=== PATIENT | female | born 1980 | race Caucasian/White ===

== ENCOUNTER 2018-09-22 10:07 | Emergency (ER) | payer MEDICAID ==
[2018-09-22] MEDS ORDERED: MORPHINE SULFATE 10 MG/ML INJ IV ONE (10:21)
[2018-09-22] MEDS ORDERED: ONDANSETRON HCL INJ/PF 4 MG/2 ML SDV IV ONE (10:21)
[2018-09-22] MEDS ORDERED: KETOROLAC TROMETHAMINE INJ/PF 30 MG/1 ML SDV IV ONE (10:21)
--- NOTE | 2018-09-22 10:23 | ER Document Report ---
ED Medical Screen (RME) - General Chief Complaint: Possible Kidney Stone Stated Complaint: FLANK PAIN Time Seen by Provider: 09/22/18 10:19 TRAVEL OUTSIDE OF THE U.S. IN LAST 30 DAYS: No - HPI Notes: 09/22/18 10:22 Patient is a 38-year-old female with a history of kidney stones who presents complaining of left flank pain that radiates to her left abdomen/groin area that began last night. Patient states that the pain started acutely and has been intermittent. She has had associated nausea and vomiting since then. Patient states that she is not urinating as much. Denies drug allergies. No other vaginal discharge, odor, or bleeding. Denies GARCIA, fever, neck pain, URI, CP, SOB, back pain, or rash. I have treated and performed a rapid initial assessment of this patient. A comprehensive ED assessment and evaluation of the patient, analysis of test results and completion of medical decision making process will be conducted by additional ED providers. PHYSICAL EXAMINATION: GENERAL: Well-appearing, well-nourished and in no acute distress. A&Ox4. Answers questions appropriately. LUNGS: Breath sounds clear to auscultation bilaterally and equal. No wheezes rales or rhonchi. HEART: Regular rate and rhythm without murmurs, rubs, gallops. ABDOMEN: Soft, nondistended abdomen. No guarding, no rebound. Normal bowel sounds present. + left CVA tenderness. Grossly nontender (cannot elicit thorough abd exam w/o bed, however). - Related Data Allergies/Adverse Reactions: No Known Allergies Allergy (Unverified 09/22/18 10:10)
[2018-09-22] MEDS: NORMAL SALINE 1000 ML 1,000 ML IV PRN ×2 (10:35→12:26)
[2018-09-22 10:57] LABS: ABSOLUTE LYMPHOCYTES (AUTO) 2.6 10^3/uL (0.5-4.7); ABSOLUTE MONOCYTES (AUTO) 0.4 10^3/uL (0.1-1.4); ABSOLUTE NEUT (AUTO) 7.7 10^3/uL (1.7-8.2); BASOPHILS % (AUTO) 0.3 % (0-2); EOSINOPHILS % (AUTO) 0.2 % (0-6); HEMATOCRIT 44.3 % (36.0-47.0); LYMPHOCYTES % (AUTO) 23.9 % (13-45); MEAN CORPUSCULAR HEMOGLOBIN 30.5 pg (27.0-33.4); MEAN CORPUSCULAR HGB CONC 33.8 g/dL (32.0-36.0); MEAN CORPUSCULAR VOLUME 90 fl (80-97); MONOCYTES % (AUTO) 3.7 % (3-13); PLATELET COUNT 368 10^3/uL (150-450); RED BLOOD COUNT 4.92 10^6/uL (3.72-5.28); RED CELL DISTRIBUTION WIDTH 13.5 % (11.5-14.0); SEGMENTED NEUTROPHILS % (AUTO) 71.9 % (42-78); TOTAL CELLS COUNTED % (AUTO) 100 %; WHITE BLOOD COUNT 10.7 10^3/uL (4.0-10.5)
[2018-09-22 11:15] LABS: ALANINE AMINOTRANSFERASE 37 U/L (9-52); ALBUMIN 4.5 g/dL (3.5-5.0); ALKALINE PHOSPHATASE 93 U/L (38-126); ANION GAP 10 (5-19); ASPARTATE AMINO TRANSFERASE 36 U/L (14-36); BILIRUBIN,DIRECT 0.4 mg/dL (0.0-0.4); BILIRUBIN,TOTAL 0.8 mg/dL (0.2-1.3); BLOOD UREA NITROGEN 9 mg/dL (7-20); CALCIUM 9.4 mg/dL (8.4-10.2); CARBON DIOXIDE 23 mmol/L (22-30); CHLORIDE 107 mmol/L (98-107); GLUCOSE 151 mg/dL (75-110); TOTAL PROTEIN 8.1 g/dL (6.3-8.2)
[2018-09-22 11:21] LABS: APPEARANCE,URINE SLIGHTLY-CLOUDY; BILIRUBIN,URINE SMALL (NEGATIVE); CALCIUM OXALATE CRYSTALS,URINE MODERATE /HPF; GLUCOSE, URINE NEGATIVE (NEGATIVE); KETONES,URINE 20 mg/dL (NEGATIVE); LEUKOCYTE ESTERASE,URINE NEGATIVE (NEGATIVE); NITRITE,URINE NEGATIVE (NEGATIVE); PROTEIN,URINE 30 mg/dL (NEGATIVE); URINE SPECIFIC GRAVITY 1.024
[2018-09-22 11:23] LABS: COLOR,URINE YELLOW
--- NOTE | 2018-09-22 11:39 | RADIOLOGY REPORT (SQ) ---
EXAM DESCRIPTION: CT ABD/PELVIS NO ORAL OR IV COMPLETED DATE/TIME: 09/22/2018 11:25 am REASON FOR STUDY: Left flank pain COMPARISON: None. TECHNIQUE: CT scan of the abdomen and pelvis performed without intravenous or oral contrast. Images reviewed with lung, soft tissue, and bone windows. Reconstructed coronal and sagittal MPR images revi ewed. All images stored on PACS. All CT scanners at this facility use dose modulation, iterative reconstruction, and/or weight based d osing when appropriate to reduce radiation dose to as low as reasonably achievable (ALARA). [facility]: Dose Right [facility]: CareDose [facility]: Dose Right [facility]: Teradose 4D [facility]: Smart [employer] RADIATION DOSE: CT Rad equipment meets quality standard of care and radiation dose reduction techniq ues were employed. CTDIvol: 12.0 mGy. DLP: 656 mGy-cm.mGy. LIMITATIONS: None. FINDINGS: LOWER CHEST: No significant findings. No nodules or infiltrates. NON-CONTRASTED LIVER, SPLEEN, ADRENALS: Evaluation limited by lack of IV contrast. No identified sign ificant masses. PANCREAS: No masses. No peripancreatic inflammatory changes. GALLBLADDER: No identified stones by CT criteria. No inflammatory changes to suggest cholecystitis. RIGHT KIDNEY AND URETER: No suspicious masses. Assessment limited by lack of IV contrast. No signif icant calcifications. No hydronephrosis or hydroureter. LEFT KIDNEY AND URETER: No suspicious masses. Assessment limited by lack of IV contrast. No signifi cant calcifications. No hydronephrosis or hydroureter. AORTA AND RETROPERITONEUM: No aneurysm. No retroperitoneal masses or adenopathy. BOWEL AND PERITONEAL CAVITY: Questionable wall thickening versus nondistention of the colon from the hepatic flexure to the sigmoid. APPENDIX: Normal. PELVIS, BLADDER, AND ABDOMINAL WALL:No abnormal masses. No free fluid. Bladder normal. BONES: No significant findings. OTHER: No other significant finding. IMPRESSION: Questionable wall thickening in the colon versus mere nondistention. Correlate for infl ammatory bowel disease. COMMENT: Quality ID # [id number]: Final reports with documentation of one or more dose reduction techniques (e.g., Automated exposure control, adjustment of the mA and/or kV according to patient size, use of iterative reconstruction technique) TECHNICAL DOCUMENTATION: JOB ID: [id number] [email or web address]- All Rights Reserved Reading location - IP/workstation name: [email or web address]
[2018-09-22] MEDS ORDERED: FENTANYL CITRATE INJ/PF 100 MCG/2 ML AMPUL IV ONE ×2 (12:17→13:20)
--- NOTE | 2018-09-22 12:19 | ER Document Report ---
ED General - General Chief Complaint: Possible Kidney Stone Stated Complaint: FLANK PAIN Time Seen by Provider: 09/22/18 10:19 Primary Care Provider: CHRISTINA FELTON MD [ACTIVE STAFF] - Follow up as needed CIRILO CARREON MD [ACTIVE STAFF] - Follow up as needed Mode of Arrival: Ambulatory Information source: Patient TRAVEL OUTSIDE OF THE U.S. IN LAST 30 DAYS: No - HPI Notes: 38-year-old female presents to the ED for evaluation of left lower quadrant abdominal pain, left flank pain that started approximately x1 day ago Denies any vxuz-yiz-rhvhdlq medications have been tried, recently moved from [place] down to [place] within the last 2 weeks. Denies any diarrhea, reports nausea and vomiting. Patient reports she does have a history of kidney stones. Last menstrual period was 2 weeks ago. denies fevers, chills, chest pain,palpitations, shortness of breath, dyspnea, hematuria,blurred vision, double vision, loss of vision, speech changes, LH, dizziness, syncope, headaches, wheezing, ST, URI, neck pain, weakness, bowel or bladder dysfunction, saddle anesthesia, numbness or tingling in bilateral upper or lower extremities equally, muscle paralysis, weakness in bilateral upper or lower extremities equally or rash. - Related Data Allergies/Adverse Reactions: No Known Allergies Allergy (Unverified 09/22/18 10:10) Past Medical History - General Information source: Patient - Social History Smoking Status: Current Every Day Smoker Chew tobacco use (# tins/day): No Drug Abuse: None Family History: Reviewed & Not Pertinent Patient has suicidal ideation: No Patient has homicidal ideation: No Renal/ Medical History: Denies: Hx Peritoneal Dialysis Review of Systems - Review of Systems Constitutional: No symptoms reported EENT: No symptoms reported Cardiovascular: No symptoms reported Respiratory: No symptoms reported Gastrointestinal: See HPI Genitourinary: No symptoms reported Female Genitourinary: No symptoms reported Musculoskeletal: No symptoms reported Skin: No symptoms reported Hematologic/Lymphatic: No symptoms reported Neurological/Psychological: No symptoms reported Physical Exam - Vital signs Vitals: Temp Pulse Resp BP Pulse Ox 97.4 F 92 20 153/92 H 99 09/22/18 10:13 09/22/18 10:13 09/22/18 10:13 09/22/18 10:13 09/22/18 10:13 - Notes Notes: PHYSICAL EXAMINATION: GENERAL: Well-appearing, well-nourished and in no mild distress HEAD: Atraumatic, normocephalic. EYES: Pupils equal round and reactive to light, extraocular movements intact, conjunctiva are normal. ENT: Nares patent, oropharynx clear without exudates. Moist mucous membranes. NECK: Normal range of motion, supple without lymphadenopathy LUNGS: Breath sounds clear to auscultation bilaterally and equal. No wheezes rales or rhonchi. HEART: Regular rate and rhythm without murmurs ABDOMEN: Soft, LLQ abd tenderness on palpation, nondistended abdomen. No gua rding, no rebound. No masses appreciated. Left CVA tenderness on palpation Female : deferred Musculoskeletal: Normal range of motion, no pitting or edema. No cyanosis. NEUROLOGICAL: Cranial nerves grossly intact. Normal speech, normal gait. Normal sensory, motor exams PSYCH: Normal mood, normal affect. SKIN: Warm, Dry, normal turgor, no rashes or lesions noted. Course - Re-evaluation Re-evalutation: 09/22/18 17:10 38-year-old female afebrile vitals stable and in slight distress due to pain, CT abdomen pelvis with IV contrast shows thickening of the colon, questionable if there is any IBS. Will treat patient with antibiotics for anaerobic and aerobic bacteria. Advised to take antibiotics with food, increase oral hydration. , CBC negative for leukocytosis or anemia, CMP negative for hepatic or renal dysfunction, no electrolyte disturbances. Urinalysis shows shows ketones, proteinuria. Working out has been given, Follow-up with dollyman and primary care provider within the next 3 days. after performing a Medical Screening Examination, I estimate there is LOW risk for ACUTE APPENDICITIS, FERNANDO L OBSTRUCTION, ACUTE CHOLECYSTITIS, PERFORATED DIVERTICULITIS, INCARCERATED HERNIA, PANCREATITIS, PELVIC INFLAMMATORY DISEASE, PERFORATED ULCER, ECTOPIC , or TUBO-OVARIAN ABSCESS, thus I consider the discharge disposition reasonable. Also, there is no evidence or peritonitis, sepsis, or toxicity. I have reevaluated this patient multiple times and no significant life threatening changes are noted. The patient and I have discussed the diagnosis and risks, and we agree with discharging home with close follow-up with the understanding that symptoms and presentations can change. We also discussed returning to the Emergency Department immediately if new or worsening symptoms occur. We have discussed the symptoms which are most concerning (e.g., bloody stool, fever, changing or worsening pain, vomiting) that necessitate immediate return. - Vital Signs Vital signs: Temp Pulse Resp BP Pulse Ox 97.8 F 69 20 149/86 H 100 09/22/18 13:27 09/22/18 13:27 09/22/18 13:27 09/22/18 13:27 09/22/18 13:27 - Laboratory Result Diagrams: 09/22/18 10:28 09/22/18 10:28 Laboratory results interpreted by me: 09/22/18 09/22/18 09/22/18 10:28 10:28 10:28 WBC 10.7 H Glucose 151 H Urine Protein 30 H Urine Ketones 20 H Urine Bilirubin SMALL H Urine Urobilinogen 2.0 H Discharge - Discharge Clinical Impression: Colitis Condition: Stable Disposition: HOME, SELF-CARE Instructions: Ciprofloxacin ([facility]), Colitis, Nonspecific ([facility]), Metronidazole ([facility]) Additional Instructions: Your labs are essentially normal. CT abdomen pelvis with IV contrast shows that you have thickening of the colon which could be related to infection. Will prescribe you antibiotics, take both pills twice a day for [address], drink or operate heavy machinery while taking pain medication as it can cause sedation and impairment of cognitive function. Please follow-up with dollyman as well as primary care provider, referrals have been provided. If symptoms become worse such as fever, worsening pain, vomiting, confusion, etc., return to the ED immediately. Return immediately for any new or worsening symptoms. Follow up with primary care provider, call tomorrow to make followup appointment. Prescriptions: Ciprofloxacin HCl [Cipro 500 mg Tablet] 500 mg PO BID #20 tablet Metronidazole [Flagyl 500 mg Tablet] 500 mg PO BID #20 tablet Forms: Return to Work Referrals: CHRISTINA FELTON MD [ACTIVE STAFF] - Follow up as needed CIRILO CARREON MD [ACTIVE STAFF] - Follow up as needed
[2018-09-22] MEDS ORDERED: HYDROCODONE/ACETAMINOPHEN 5-325 MG (6 TAB/ER DISP) PO PRN (13:23)
[2018-09-22 13:38] VITALS: BP 149/86
== END 2018-09-22 13:55 | disposition home or self-care (01) ==
LOC: ER 10:07
DX: K52.9 Noninfective gastroenteritis and colitis, unspecified (principal); R10.32 Left lower quadrant pain; F17.200 Nicotine dependence, unspecified, uncomplicated
CPT/HCPCS: 96376; 99284; 96361; 96374; 96375; 36415; 83690; 85025; 81025; 80053; 81001; 74176; J3010; J1885; J2270; J2405; J7030

== ENCOUNTER 2018-09-24 09:40 | Emergency (ER) | payer MEDICAID ==
[2018-09-24] MEDS ORDERED: ONDANSETRON 4 MG TAB.RAPDIS PO ONE (10:08)
[2018-09-24] MEDS ORDERED: KETOROLAC TROMETHAMINE 60 MG/2 ML SDV IM ONE (10:08)
--- NOTE | 2018-09-24 10:10 | ER Document Report ---
ED Medical Screen (RME) - General Chief Complaint: Abdominal Pain Stated Complaint: VOMITTING, FLANK PAIN Time Seen by Provider: 09/24/18 10:04 Mode of Arrival: Ambulatory Information source: Patient Notes: This 38-year-old female presents emergency department with complaints of left flank pain abdominal pain. Reports she was evaluated here in the emergency department for same symptoms 2 days ago. Patient has history of kidney stones. She reports she believes the CT scan was negative for kidney stones. She reports she feels nauseated she has been vomiting, reports fever, no fever at this time no Tylenol or Motrin taken this morning. Patient just moved here from [place] and does not have a primary care provider. Patient left flank tender to palpate. Review of the CT abdomen without contrast noted thickening for possible colitis. She was treated with Cipro and Flagyl. Patient reports she has been trying to take the antibiotics but she reports she cannot keep it down because she keeps vomiting. I have greeted and performed a rapid initial assessment of this patient. A comprehensive ED assessment and evaluation of the patient, analysis of test results and completion of the medical decision making process will be conducted by additional ED providers. Dictation of this chart was performed using voice recognition software; therefore, there may be some unintended grammatical errors. TRAVEL OUTSIDE OF THE U.S. IN LAST 30 DAYS: No - Related Data Allergies/Adverse Reactions: No Known Allergies Allergy (Verified 09/24/18 09:49) Past Medical History Renal/ Medical History: Denies: Hx Peritoneal Dialysis Physical Exam - Vital signs Vitals: Temp Pulse Resp BP Pulse Ox 98.1 F 72 16 139/80 H 97 09/24/18 09:53 09/24/18 09:53 09/24/18 09:53 09/24/18 09:53 09/24/18 09:53 Course - Vital Signs Vital signs: Temp Pulse Resp BP Pulse Ox 98.1 F 72 16 139/80 H 97 09/24/18 09:53 09/24/18 09:53 09/24/18 09:53 09/24/18 09:53 09/24/18 09:53
[2018-09-24 11:03] LABS: APPEARANCE,URINE SLIGHTLY-CLOUDY; BILIRUBIN,URINE SMALL (NEGATIVE); COLOR,URINE AMBER; GLUCOSE, URINE NEGATIVE (NEGATIVE); KETONES,URINE 80 mg/dL (NEGATIVE); LEUKOCYTE ESTERASE,URINE TRACE (NEGATIVE); NITRITE,URINE NEGATIVE (NEGATIVE); PROTEIN,URINE 100 mg/dL (NEGATIVE); URINE SPECIFIC GRAVITY 1.033
[2018-09-24 11:05] LABS: ABSOLUTE LYMPHOCYTES (AUTO) 2.8 10^3/uL (0.5-4.7); ABSOLUTE MONOCYTES (AUTO) 0.7 10^3/uL (0.1-1.4); ABSOLUTE NEUT (AUTO) 7.9 10^3/uL (1.7-8.2); BASOPHILS % (AUTO) 0.3 % (0-2); HEMATOCRIT 42.7 % (36.0-47.0); HEMOGLOBIN 14.6 g/dL (12.0-15.5); LYMPHOCYTES % (AUTO) 24.3 % (13-45); MEAN CORPUSCULAR HEMOGLOBIN 30.2 pg (27.0-33.4); MEAN CORPUSCULAR HGB CONC 34.2 g/dL (32.0-36.0); MEAN CORPUSCULAR VOLUME 88 fl (80-97); MONOCYTES % (AUTO) 6.1 % (3-13); PLATELET COUNT 373 10^3/uL (150-450); RED BLOOD COUNT 4.84 10^6/uL (3.72-5.28); RED CELL DISTRIBUTION WIDTH 13.6 % (11.5-14.0); SEGMENTED NEUTROPHILS % (AUTO) 69.3 % (42-78); TOTAL CELLS COUNTED % (AUTO) 100 %; WHITE BLOOD COUNT 11.5 10^3/uL (4.0-10.5)
[2018-09-24 11:10] LABS: ALBUMIN 4.7 g/dL (3.5-5.0); ALKALINE PHOSPHATASE 71 U/L (38-126); ANION GAP 13 (5-19); ASPARTATE AMINO TRANSFERASE 32 U/L (14-36); BILIRUBIN,DIRECT 0.4 mg/dL (0.0-0.4); BILIRUBIN,TOTAL 0.9 mg/dL (0.2-1.3); BLOOD UREA NITROGEN 17 mg/dL (7-20); CALCIUM 9.7 mg/dL (8.4-10.2); CARBON DIOXIDE 30 mmol/L (22-30); CHLORIDE 96 mmol/L (98-107); GLUCOSE 118 mg/dL (75-110); POTASSIUM 3.4 mmol/L (3.6-5.0); TOTAL PROTEIN 8.3 g/dL (6.3-8.2)
--- NOTE | 2018-09-24 12:14 | RADIOLOGY REPORT (SQ) ---
EXAM DESCRIPTION: U/S RETROPERITON (RENAL/AORTA) COMPLETED DATE/TIME: 09/24/2018 10:52 am REASON FOR STUDY: left flank pain COMPARISON: None. TECHNIQUE: Dynamic and static grayscale images acquired of the kidneys and bladder and recorded on P ACS. Additional selected color Doppler and spectral images recorded. LIMITATIONS: None. FINDINGS: RIGHT KIDNEY: Normal size. Normal echogenicity. No solid or suspicious masses. No hydronep hrosis. No calcifications. LEFT KIDNEY: Normal size. Normal echogenicity. No solid or suspicious masses. No hydronephrosis. No calcifications. BLADDER: Empty. OTHER FINDINGS: No other significant finding. IMPRESSION: NORMAL RENAL ULTRASOUND. TECHNICAL DOCUMENTATION: JOB ID: [id number] [employer]- All Rights Reserved Reading location - IP/workstation name: [email or web address]
--- NOTE | 2018-09-24 12:34 | RADIOLOGY REPORT (SQ) ---
EXAM DESCRIPTION: CT ABD/PELVIS WITH IV ONLY COMPLETED DATE/TIME: 09/24/2018 12:08 pm REASON FOR STUDY: abd pain, colitis COMPARISON: 09/22/2018. TECHNIQUE: CT scan of the abdomen and pelvis performed using helical scanning technique with dynamic intravenous contrast injection. No oral contrast. Images reviewed with lung, soft tissue, and bone windows. Reconstructed coronal and sagittal MPR images reviewed. Delayed images for evaluation of the urinary system also acquired. All images stored on PACS. All CT scanners at this facility use dose modulation, iterative reconstruction, and/or weight based d osing when appropriate to reduce radiation dose to as low as reasonably achievable (ALARA). [facility]: Dose Right [facility]: CareDose [facility]: Dose Right [facility]: Teradose 4D [facility]: [employer] CONTRAST TYPE AND DOSE: Information not available. RENAL FUNCTION: Information not available. RADIATION DOSE: CT Rad equipment meets quality standard of care and radiation dose reduction techniq ues were employed. CTDIvol: 12.4 - 17.0 mGy. DLP: 1539 mGy-cm.. LIMITATIONS: None. FINDINGS: LOWER CHEST: No significant findings. No nodules or infiltrates. LIVER: Normal size. No masses. No dilated ducts. SPLEEN: Normal size. No focal lesions. PANCREAS: No masses. No significant calcifications. No adjacent inflammation or peripancreatic fluid collections. Pancreatic duct not dilated. GALLBLADDER: Surgically absent. ADRENAL GLANDS: No significant masses or asymmetry. RIGHT KIDNEY AND URETER: No solid masses. No significant calcifications. No hydronephrosis or hyd roureter. LEFT KIDNEY AND URETER: No solid masses. No significant calcifications. No hydronephrosis or hydr oureter. AORTA AND VESSELS: No aneurysm. No dissection. Renal arteries, SMA, celiac without stenosis. RETROPERITONEUM: No retroperitoneal adenopathy, hemorrhage or masses. BOWEL AND PERITONEAL CAVITY: No masses or inflammatory changes. No free fluid or peritoneal masses. APPENDIX: Normal. PELVIS: Left ovarian cyst. No free fluid. Normal bladder. ABDOMINAL WALL: No masses. No hernias. BONES: No significant or acute findings. OTHER: No other significant finding. IMPRESSION: NO SIGNIFICANT OR ACUTE FINDING IN THE ABDOMEN OR PELVIS ON CT SCAN WITH IV CONTRAST. I NCIDENTAL LEFT OVARIAN CYST. TECHNICAL DOCUMENTATION: JOB ID: [id number] Quality ID # [id number]: Final reports with documentation of one or more dose reduction techniques (e.g., Au tomated exposure control, adjustment of the mA and/or kV according to patient size, use of iterative reconstruction technique) 2010 [employer]- All Rights Reserved Reading location - IP/workstation name: [email or web address]
--- NOTE | 2018-09-24 12:51 | ER Document Report ---
ED General - General Chief Complaint: Abdominal Pain Stated Complaint: VOMITTING, FLANK PAIN Time Seen by Provider: 09/24/18 10:04 Mode of Arrival: Ambulatory TRAVEL OUTSIDE OF THE U.S. IN LAST 30 DAYS: No - HPI Notes: 38-year-old female to the emergency department with complaints of persistent bilateral flank pain with associated generalized abdominal pain and nausea and vomiting for the past 3 to 4 days. She was seen 2 days ago in the emergency department for her flank pain and had a CT done. She states that she was told she had a colitis and was placed on Cipro and Flagyl. Since then she has not been able to hold down any of her medicines. She does have antiemetics at home but despite trying to take them she has not been able to. She also has Balko at home as well as antibiotics. She has not been able to hold any of them down. She denies any fevers, chills, chest pain, shortness of breath, sick contact, recent travel, diarrhea. She has not taken antibiotics prior to the Cipro and Flagyl. She states that she has had a history of kidney stones and this feels similar. Denies hematuria. - Related Data Allergies/Adverse Reactions: No Known Allergies Allergy (Verified 09/24/18 09:49) Past Medical History - General Information source: Patient - Social History Smoking Status: Current Every Day Smoker Chew tobacco use (# tins/day): No Frequency of alcohol use: None Drug Abuse: None Family History: Reviewed & Not Pertinent Patient has suicidal ideation: No Patient has homicidal ideation: No Renal/ Medical History: Reports: Hx Kidney Stones. Denies: Hx Peritoneal Dialysis Review of Systems - Review of Systems Constitutional: denies: Chills, Fever EENT: No symptoms reported Cardiovascular: denies: Chest pain, Palpitations, Dyspnea, Syncope, Dizziness, Lightheaded Respiratory: denies: Cough, Short of breath Gastrointestinal: Abdominal pain, Nausea, Vomiting. denies: Diarrhea Genitourinary: Flank pain. denies: Burning, Dysuria, Hematuria, Incontinence Musculoskeletal: No symptoms reported Skin: No symptoms reported Neurological/Psychological: No symptoms reported -: Yes All other systems reviewed and negative Physical Exam - Vital signs Vitals: Temp Pulse Resp BP Pulse Ox 98.1 F 72 16 139/80 H 97 09/24/18 09:53 09/24/18 09:53 09/24/18 09:53 09/24/18 09:53 09/24/18 09:53 Interpretation: Normal - General General appearance: Alert, Anxious In distress: Mild Notes: Mild pain distress. Walking around in the room holding both flank. - HEENT Head: Normocephalic, Atraumatic Eyes: Normal Pupils: PERRL - Respiratory Respiratory status: No respiratory distress Chest status: Nontender Breath sounds: Normal Chest palpation: Normal - Cardiovascular Rhythm: Tachycardia Heart sounds: Normal auscultation Murmur: No - Abdominal Inspection: Obese Distension: No distension Bowel sounds: Normal Tenderness: Tender - Generalized tenderness to palpation. Negative Jay sign negative McBurney's point. Patient does not have guarding or rebound. She has no peritoneal signs. Organomegaly: No organomegaly - Back Back: CVA tenderness - Positive bilateral CVA tenderness - Neurological Neuro grossly intact: Yes Cognition: Normal Orientation: AAOx4 Anabel Coma Scale Eye Opening: Spontaneous Anabel Coma Scale Verbal: Oriented [place] Coma Scale Motor: Obeys Commands [place] Coma Scale Total: 15 Speech: Normal Motor strength normal: LUE, RUE, LLE, RLE Sensory: Normal - Psychological Associated symptoms: Normal affect, Normal mood - Skin Skin Temperature: Warm Skin Moisture: Dry Skin Color: Normal Course - Re-evaluation Re-evalutation: 09/24/18 15:23 Renal Ultrasound 09/24/18 10:08 IMPRESSION: NORMAL RENAL ULTRASOUND. Abdomen/Pelvis CT 09/24/18 10:12 IMPRESSION: NO SIGNIFICANT OR ACUTE FINDING IN THE ABDOMEN OR PELVIS ON CT SCAN WITH IV CONTRAST. INCIDENTAL LEFT OVARIAN CYST. Laboratory 09/24/18 09/24/18 09/24/18 10:27 10:27 10:27 WBC 11.5 H RBC 4.84 Hgb 14.6 Hct 42.7 MCV 88 MCH 30.2 MCHC 34.2 RDW 13.6 Plt Count 373 Seg Neutrophils % 69.3 Lymphocytes % 24.3 Monocytes % 6.1 Eosinophils % 0.0 Basophils % 0.3 Absolute Neutrophils 7.9 Absolute Lymphocytes 2.8 Absolute Monocytes 0.7 Absolute Eosinophils 0.0 Absolute Basophils 0.0 Sodium 138.6 Potassium 3.4 L Chloride 96 L Carbon Dioxide 30 Anion Gap 13 BUN 17 Creatinine 0.65 Est GFR ( Amer) > 60 Est GFR (Non-Af Amer) > 60 Glucose 118 H Calcium 9.7 Total Bilirubin 0.9 Direct Bilirubin 0.4 Neonat Total Bilirubin Not Reportable Neonat Direct Bilirubin Not Reportable Neonat Indirect Bili Not Reportable AST 32 ALT 32 Alkaline Phosphatase 71 Total Protein 8.3 H Albumin 4.7 Urine Color JESS Urine Appearance SLIGHTLY-CLOUDY Urine pH 6.0 Ur Specific Marble 1.033 Urine Protein 100 H Urine Glucose (UA) NEGATIVE Urine Ketones 80 H Urine Blood NEGATIVE Urine Nitrite NEGATIVE Urine Bilirubin SMALL H Urine Urobilinogen 2.0 H Ur Leukocyte Esterase TRACE H Urine WBC (Auto) 2 Urine RBC (Auto) 17 Squamous Epi Cells Auto 9 Urine Mucus (Auto) MANY Urine Ascorbic Acid NEGATIVE Progress: Patient with bilateral flank pain now with generalized abdominal pain with nausea and vomiting repeat CT does not show an acute colitis today and r enal ultrasound is reassuring. Urinalysis without urinary tract infection. Noted white count of 11.5 which is mildly increased from 2 days prior but could just be a result from vomiting. She does not have a left shift. Her electrolytes are stable as well as her renal function. Rounded on her and she is much more comfortable than when I first saw her. She states her pain has decreased from a 10 out of 10 to a 4 out of 10 with 10 being the worst pain. She states that her nausea is much better controlled as well. She is requesting discharge because she has heard from her parents about a family emergency concerning her brother. She states that she feels much better and will plan to follow-up with her primary care physician. Given her imaging results as well as her lab results will discharge patient home with Phenergan suppositories. Encouraged her to take her other medications that were written for her 2 days ago at home. We will give her information for follow-up with GI and primary care. Have urged her to return if her symptoms worsen at all with intractable vomiting, fever, worsening abdominal pain, shortness of breath, chest pain or any other concerns. She voices understanding and agrees with the plan. - Vital Signs Vital signs: Temp Pulse Resp BP Pulse Ox 98.1 F 72 16 139/80 H 97 09/24/18 09:53 09/24/18 09:53 09/24/18 09:53 09/24/18 09:53 09/24/18 09:53 - Laboratory Result Diagrams: 09/24/18 10:27 09/24/18 10:27 Laboratory results interpreted by me: 09/24/18 09/24/18 09/24/18 10:27 10:27 10:27 WBC 11.5 H Potassium 3.4 L Chloride 96 L Glucose 118 H Total Protein 8.3 H Urine Protein 100 H Urine Ketones 80 H Urine Bilirubin SMALL H Urine Urobilinogen 2.0 H Ur Leukocyte Esterase TRACE H Discharge - Discharge Clinical Impression: Bilateral flank pain, Generalized abdominal pain Nausea & vomiting Qualifiers: Vomiting type: unspecified Vomiting Intractability: non-intractable Qualified Code(s): R11.2 - Nausea with vomiting, unspecified Condition: Stable Disposition: HOME, SELF-CARE Instructions: Abdominal Pain ([facility]), Antinausea Medication ([facility]) Additional Instructions: Return immediately if your symptoms worsen. Push fluids. Take your pain meds prescribed to you at home. Return if intractable vomiting, fevers, worsening abdominal pain. Follow up with primary care on Wednesday without fail. Prescriptions: Promethazine HCl [Phenergan 25 mg Supp.rect] 1 supp NH Q6H #12 supp.rect Referrals: [facility] [Provider Group] - Follow up in 3-5 days CHRISTINA FELTON MD [ACTIVE STAFF] - Follow up in 3-5 days (for GI follow up)
[2018-09-24] MEDS ORDERED: MORPHINE SULFATE 10 MG/ML INJ IV ONE (13:32)
[2018-09-24] MEDS ORDERED: NORMAL SALINE 1000 ML 1,000 ML IV ONE (13:33)
[2018-09-24] MEDS ORDERED: ONDANSETRON HCL INJ/PF 4 MG/2 ML SDV IV ONE (13:33)
[2018-09-24] MEDS ORDERED: FAMOTIDINE INJ/PF 20 MG/2 ML SDV IV ONE (13:33)
[2018-09-24 15:13] VITALS: BP 172/92
== END 2018-09-24 15:29 | disposition home or self-care (01) ==
LOC: ER 09:40
DX: R11.2 Nausea with vomiting, unspecified (principal); R10.84 Generalized abdominal pain; R10.9 Unspecified abdominal pain; F17.200 Nicotine dependence, unspecified, uncomplicated
CPT/HCPCS: 99284; 96372; 96361; 96374; 96375; 36415; 85025; 80053; 81001; 76770; 74177; J1885; S0119; J2270; J2405; J7030; S0028

== ENCOUNTER 2018-10-08 09:39 | Emergency (ER) | payer SELFPAY ==
[2018-10-08 09:49] VITALS: BP 186/96
--- NOTE | 2018-10-08 10:20 | EKG REPORT ---
SEVERITY:- BORDERLINE ECG - SINUS RHYTHM PROBABLE LEFT ATRIAL ABNORMALITY : Confirmed by: Vani Amin 08-Oct-2018 10:18:52
== END 2018-10-08 10:15 | disposition left against medical advice (07) ==
LOC: ER 09:39
DX: Z53.21 Procedure and treatment not carried out due to patient leaving prior to being seen by health care provider (principal)
CPT/HCPCS: 93005; 93010